=== PATIENT | female | born 1995 | race Caucasian/White ===

== ENCOUNTER 2023-12-16 09:50 | Outpatient (CLI) | payer BC ==
[2023-12-16] MEDS ORDERED: Iopamidol 30 ML ONE (09:57)
== END 2023-12-16 09:51 | disposition home or self-care (01) ==
LOC: RAD 09:50
PROVIDERS: ATTEND Obstetrics & Gynecology
DX: Z31.9 Encounter for procreative management, unspecified (principal)
CPT/HCPCS: 58340; 74740; Q9967